=== PATIENT | female | born 1990 | race Two or more races ===

== ENCOUNTER 2024-05-10 17:47 | Inpatient (IN) | payer OTHER ==
[2024-05-10 18:24] VITALS: BMI 23.0
[2024-05-10] MEDS ORDERED: ACETAMINOPHEN 325 MG TABLET (FP) PO PRN (20:09)
[2024-05-10] MEDS ORDERED: POLYETHYLENE GLYCOL (HEALTHYLAX) 3350 17 GM PACKET PO PRN (20:09)
[2024-05-10] MEDS ORDERED: DICYCLOMINE HCL 10 MG CAPSULE PO PRN (20:09)
[2024-05-10] MEDS ORDERED: IBUPROFEN 600 MG TABLET (FP) PO PRN (20:09)
[2024-05-10] MEDS ORDERED: IBUPROFEN 400 MG TABLET (FP) PO PRN (20:09)
[2024-05-10] MEDS ORDERED: BENZONATATE 200 MG CAPSULE PO PRN (20:09)
[2024-05-10] MEDS ORDERED: BISMUTH SUBSALICYLATE 524 MG/30 ML PO PRN (20:09)
[2024-05-10] MEDS ORDERED: MAGNESIUM HYDROX 2400MG/30ML ORAL SUSPENSION 30 ML CUP PO PRN (20:09)
[2024-05-10] MEDS ORDERED: BENZOCAINE/MENTHOL (CHLORASEPTIC ) LOZENGE MM PRN (20:09)
[2024-05-10] MEDS ORDERED: NALOXONE HCL 0.4 MG/ML VIAL IM PRN (20:09)
[2024-05-10] MEDS ORDERED: LOPERAMIDE HCL 2 MG CAPSULE PO PRN (20:09)
[2024-05-10] MEDS ORDERED: guaiFENesin 600 MG TABLET.ER (FP) PO PRN (20:09)
[2024-05-10] MEDS ORDERED: NALOXONE (NARCAN) HCL 4 MG/0.1 ML SPRAY NS PRN (20:09)
[2024-05-10] MEDS ORDERED: MAG HYDROX/AL HYDROX/SIMETH 30 ML UNIT-DOSE CUP PO PRN (20:09)
[2024-05-10] MEDS ORDERED: ALBUTEROL SO4 HFA INHALER IH PRN ×2 (20:13→22:16)
[2024-05-10] MEDS ORDERED: cloNIDine HCL 0.1 MG TABLET ONE (20:59)
[2024-05-10] MEDS: cloNIDine HCL 0.1 MG TABLET PO ONE (21:00)
[2024-05-10] MEDS: THIAMINE 100 MG TABLET PO SCH (22:27)
[2024-05-10] MEDS: chlordiazePOXIDE HCL 25 MG CAPSULE PO SCH (22:27)
[2024-05-10] MEDS: MELATONIN 5 MG TABLETS PO SCH (22:27)
[2024-05-10] MEDS: METHOCARBAMOL 500 MG TABLET PO PRN (22:27)
[2024-05-11] MEDS: POTASSIUM CHLORIDE TABS 20 MEQ TABLET.ER (FP) PO SCH (10:14)
[2024-05-11] MEDS: PRENATAL VITAMINS W/ FOLIC ACID TABLET (FP) PO SCH (10:14)
[2024-05-11] MEDS: MULTIVITAMINS (DAILY MVI) TABLET (FP) PO SCH (10:32)
[2024-05-11] MEDS: THIAMINE 100 MG TABLET PO SCH (10:57)
[2024-05-11] MEDS ORDERED: diazePAM 5 MG TABLET PO SCH (11:00)
[2024-05-11 11:34] LABS: HEMATOCRIT 38.1 % (32.4-45.2); HEMOGLOBIN 12.9 GM/dL (10.7-15.3); MCH 33.8 pg (25.7-33.7); MEAN CELL VOLUME 99.3 fl (80-96); PLATELET COUNT 139 10^3/uL (134-434); RBC 3.83 M/mm3 (3.60-5.2); RDW 13.7 % (11.6-15.6); WHITE BLOOD COUNT 2.6 K/mm3 (4.0-10.0)
[2024-05-11 11:42] LABS: CHLORIDE 102 mmol/L (98-107); POTASSIUM 3.5 mmol/L (3.5-5.1); SODIUM 140 mmol/L (136-145)
[2024-05-11 11:49] LABS: ALBUMIN 3.3 g/dl (3.4-5.0); CALCIUM 8.4 mg/dL (8.5-10.1)
[2024-05-11 11:50] LABS: ANION GAP 6 mmol/L (4-13); BLOOD UREA NITROGEN 3.6 mg/dL (7-18); CO2 32 mmol/L (21-32); GLUCOSE,RANDOM 83 mg/dL (74-106)
[2024-05-11 11:52] LABS: CREATININE 0.4 mg/dL (0.55-1.3); SGOT/AST 288 U/L (15-37)
[2024-05-11 11:53] LABS: SGPT/ALT 103 U/L (13-61)
[2024-05-11 11:54] LABS: BILIRUBIN,TOTAL 1.4 mg/dL (0.2-1); TOT PROT 6.6 g/dl (6.4-8.2)
[2024-05-11 11:55] LABS: ALK PHOS 86 U/L (45-117)
[2024-05-11] MEDS: MAGNESIUM OXIDE 400 MG TABLET (FP) PO SCH (11:57)
[2024-05-11] MEDS ORDERED: diazePAM 5 MG TABLET PO PRN (12:02)
[2024-05-11] MEDS: cloNIDine HCL 0.1 MG TABLET PO ONE (13:48)
[2024-05-11] MEDS: chlordiazePOXIDE HCL 25 MG CAPSULE PO PRN (13:49)
[2024-05-11] MEDS: amLODIPine BESYLATE 10 MG TABLET (FP) PO SCH (15:43)
[2024-05-12] MEDS: chlordiazePOXIDE HCL 25 MG CAPSULE PO SCH (05:58)
[2024-05-12] MEDS: ONDANSETRON *ODT* 4 MG TABLET SL PRN (06:06)
[2024-05-12] MEDS ORDERED: amLODIPine BESYLATE 10 MG TABLET (FP) PO SCH (10:00)
[2024-05-12] MEDS: hydrOXYzine PAMOATE 25 MG CAPSULE (FP) PO PRN (11:38)
[2024-05-12] MEDS: SUVOREXANT 5 MG TABLET PO PRN (22:19)
[2024-05-13] MEDS ORDERED: chlordiazePOXIDE HCL 10 MG CAPSULE PO PRN
[2024-05-13] MEDS: chlordiazePOXIDE HCL 10 MG CAPSULE PO SCH (05:45)
[2024-05-13] MEDS ORDERED: diazePAM 5 MG TABLET PO SCH (06:00)
[2024-05-14] MEDS: chlordiazePOXIDE HCL 10 MG CAPSULE PO SCH (05:30)
[2024-05-14] MEDS ORDERED: diazePAM 5 MG TABLET PO SCH (06:00)
[2024-05-15] MEDS: chlordiazePOXIDE HCL 10 MG CAPSULE PO ONE (05:55)
[2024-05-15] MEDS ORDERED: diazePAM 5 MG TABLET PO ONE (06:00)
[2024-05-15 09:22] VITALS: BP 147/100; PULSE 74; RESP 17; TEMP 97.7
== END 2024-05-15 10:35 | disposition home or self-care (01) | DRG 775 ==
LOC: YASAS 17:47 → Y3N 20:54
PROVIDERS: ADMIT Allergy & Immunology; ATTEND Surgery
PROC: HZ2ZZZZ Detoxification Services for Substance Abuse Treatment (ICD-10-PCS; principal; 2024-05-10)
DX: F10.230 Alcohol dependence with withdrawal, uncomplicated (principal); F12.20 Cannabis dependence, uncomplicated; F19.282 Other psychoactive substance dependence with psychoactive substance-induced sleep disorder; I10 Essential (primary) hypertension; J45.909 Unspecified asthma, uncomplicated; Z87.891 Personal history of nicotine dependence
CPT/HCPCS: 36415; 80053; 80305; 80307; 81025; 85027; 86780; 93005; 93010; Q0162